=== PATIENT | male | born 1985 | race American Indian/Alaskan Native ===

== ENCOUNTER 2025-07-06 12:36 | Inpatient (IN) | payer OTHER ==
[2025-07-06 12:56] VITALS: BMI 18.3
[2025-07-06] MEDS ORDERED: IBUPROFEN 600 MG TABLET (FP) PO PRN (13:26)
[2025-07-06] MEDS ORDERED: hydrOXYzine PAMOATE 25 MG CAPSULE (FP) PO PRN (13:26)
[2025-07-06] MEDS ORDERED: guaiFENesin 600 MG TABLET.ER (FP) PO PRN (13:26)
[2025-07-06] MEDS ORDERED: IBUPROFEN 400 MG TABLET (FP) PO PRN (13:26)
[2025-07-06] MEDS ORDERED: BENZONATATE 200 MG CAPSULE PO PRN (13:26)
[2025-07-06] MEDS ORDERED: POLYETHYLENE GLYCOL (HEALTHYLAX) 3350 17 GM PACKET PO PRN (13:26)
[2025-07-06] MEDS ORDERED: BENZOCAINE/MENTHOL (CHLORASEPTIC ) LOZENGE MM PRN (13:26)
[2025-07-06] MEDS ORDERED: MAG HYDROX/AL HYDROX/SIMETH 30 ML UNIT-DOSE CUP PO PRN (13:26)
[2025-07-06] MEDS ORDERED: NALOXONE (NARCAN) HCL 4 MG/0.1 ML SPRAY NS PRN (13:26)
[2025-07-06] MEDS ORDERED: MAGNESIUM HYDROX 2400MG/30ML ORAL SUSPENSION 30 ML CUP PO PRN (13:26)
[2025-07-06] MEDS ORDERED: ACETAMINOPHEN 325 MG TABLET (FP) PO PRN (13:26)
[2025-07-06] MEDS ORDERED: LOPERAMIDE HCL 2 MG CAPSULE PO PRN (13:26)
[2025-07-06] MEDS: PRENATAL VITAMINS W/ FOLIC ACID TABLET (FP) PO SCH (15:42)
[2025-07-06] MEDS ORDERED: BUPRENORPHINE/NALOXONE 4 MG/1 MG FILM PACKET SL SCH ×2 (15:42→22:00)
[2025-07-06] MEDS: BUPRENORPHINE/NALOXONE 4 MG/1 MG FILM PACKET SL ONE (15:55)
[2025-07-06] MEDS: TUBERCULIN PPD 5 TU/0.1ML SYRINGE (IN PATIENT USE ONLY) ID ONE (17:30)
[2025-07-06] MEDS: MELATONIN 5 MG TABLETS PO SCH (23:16)
[2025-07-06] MEDS: THIAMINE 100 MG TABLET PO SCH (23:16)
[2025-07-07] MEDS: BUPRENORPHINE/NALOXONE 4 MG/1 MG FILM PACKET SL SCH (09:18)
[2025-07-07 09:21] VITALS: BP 103/72; PULSE 80; RESP 15; TEMP 96.9
[2025-07-07 10:01] LABS: MCHC 34.1 g/dl (32.3-36.5); MEAN CELL VOLUME 94.6 fl (79.0-92.2); MEAN PLT VOLUME 10.6 fl (9.4-12.4); RDW 14.3 % (12.1-15.9)
[2025-07-07 10:50] LABS: SYPHILIS W/ RPR CONF NON-REACTIVE (NONREACTIVE)
[2025-07-07 11:11] LABS: GLUCOSE,RANDOM 73.0 mg/dL (74-106); TOT PROT 6.5 g/dl (6.4-8.2)
[2025-07-07 11:12] LABS: CO2 23.0 mmol/L (21-32)
[2025-07-07 11:14] LABS: ALK PHOS 64.0 U/L (40-150)
[2025-07-07 11:17] LABS: CREATININE 0.71 mg/dL (0.55-1.3); SGOT/AST 28.0 U/L (5-34); SGPT/ALT 19.0 U/L (0-55)
[2025-07-07 12:30] LABS: HCV DIAGNOSTIC IN-HOUSE W/RFLX REACTIVE (NONREACTIVE)
== END 2025-07-07 20:00 | disposition short-term general hospital (02) | DRG 772 ==
LOC: YASAS 12:36 → Y3NR 14:50
PROVIDERS: ADMIT Allergy & Immunology; ATTEND Psychiatry & Neurology Pain Medicine
PROC: HZ42ZZZ Group Counseling for Substance Abuse Treatment, Cognitive-Behavioral (ICD-10-PCS; principal; 2025-07-06)
DX: F10.20 Alcohol dependence, uncomplicated (principal); F11.20 Opioid dependence, uncomplicated; F14.20 Cocaine dependence, uncomplicated; F12.20 Cannabis dependence, uncomplicated; F19.24 Other psychoactive substance dependence with psychoactive substance-induced mood disorder; F31.9 Bipolar disorder, unspecified; F43.10 Post-traumatic stress disorder, unspecified; F41.9 Anxiety disorder, unspecified; R45.850 Homicidal ideations; Z87.891 Personal history of nicotine dependence
CPT/HCPCS: 36415; 71046-TC-FY; 80053; 85027; 86780; 86803; 87522; 93005; 93010